=== PATIENT | male | born 1990 | race Caucasian/White ===

== ENCOUNTER 2017-04-08 15:11 | Emergency (ER) | payer OTHER ==
[2017-04-08 15:25] VITALS: RESP 18; TEMP 98.5
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
--- NOTE | 2017-04-08 16:39 | XR ---
EXAMINATION TYPE: XR hand complete RT , 3 VIEWS DATE OF EXAM ORDERED: 04/08/2017 HISTORY: Pain. COMPARISON: None. FINDINGS: There is a comminuted fracture the base of fifth metacarpal. This extends into the articul ation with the hamate. Lucency through the hamate is believed to represent a Mach band. No other frac tures are seen. IMPRESSION: MINIMALLY DISPLACED, INTRA-ARTICULAR, COMMINUTED FRACTURE OF THE BASE OF THE FIFTH METACARPAL. CODE A: INITIAL ASSESSMENT FOR CLOSED FRACTURE.
[2017-04-08 17:33] VITALS: BP 159/74; PULSE 80
== END 2017-04-08 17:33 | disposition home or self-care (01) ==
LOC: EC 15:11
DX: S62.316A Displaced fracture of base of fifth metacarpal bone, right hand, initial encounter for closed fracture (principal); S00.03XA Contusion of scalp, initial encounter; Z79.899 Other long term (current) drug therapy; Z91.09 Other allergy status, other than to drugs and biological substances; V17.4XXA Pedal cycle driver injured in collision with fixed or stationary object in traffic accident, initial encounter; Y92.410 Unspecified street and highway as the place of occurrence of the external cause; Y93.55 Activity, bike riding
CPT/HCPCS: 29125; 70450; 99284